=== PATIENT | female | born 1945 | race Caucasian/White ===

== ENCOUNTER 2017-02-26 06:12 | Inpatient (IN) | payer MEDICARE, MEDICAID ==
[~2017-02-26] VITALS: Ht 152.4 cm; Wt 59.1 kg
[2017-02-26] MEDS ORDERED: SODIUM CHLORIDE 0.9% 1,000ML IVBOLUS ONE (07:30)
[2017-02-26] MEDS ORDERED: SODIUM CHLORIDE FLUSH 10ML SYR IVF ONE (07:30)
[2017-02-26 08:16] LABS: ASPARTATE AMINO TRANSFERASE 25 U/L (15-37); BLOOD UREA NITROGEN 11 mg/dL (7-18)
[2017-02-26] MEDS ORDERED: NS + 40MEQ KCL 1,000 ML IV SCH (08:37)
[2017-02-26] MEDS ORDERED: POTASSIUM CHLORIDE 20 MEQ TAB.ER.PRT ONE (08:45)
[2017-02-26 09:00] LABS: PATH.CAST-FLAG NOT PRESENT; SPERM-FLAG NOT PRESENT; SRC-FLAG NOT PRESENT; XTAL-FLAG NOT PRESENT; YLC-FLAG NOT PRESENT
[2017-02-26] MEDS ORDERED: POTASSIUM CHLORIDE 20 MEQ TAB.ER.PRT PO ONE (09:00)
[2017-02-26] MEDS ORDERED: LOSA1TAB16 PO (09:27)
[2017-02-26] MEDS ORDERED: MONT10TA9 PO (09:28)
[2017-02-26] MEDS ORDERED: SITA1TAB PO (09:30)
[2017-02-26 12:15] VITALS: BP 139/61
[2017-02-26 13:45] LABS: BLOOD UREA NITROGEN 9 mg/dL (7-18)
[2017-02-26] MEDS ORDERED: MAGNESIUM SULFATE PMX 4GM/100M 100 ML IV ONE (14:30)
[2017-02-26] MEDS ORDERED: ACETAMINOPHEN 325 MG TABLET PO PRN (15:00)
[2017-02-26] MEDS ORDERED: DOCUSATE 100 MG CAPSULE PO PRN (15:00)
[2017-02-26] MEDS ORDERED: GUAIFENESIN/DM 200-20MG, 10ML UDC PO PRN (15:00)
[2017-02-26] MEDS ORDERED: hydrALAzine 20 MG/ML, 1ML IVPush PRN (15:00)
[2017-02-26] MEDS ORDERED: HYDROcodone/APAP 5/325 TABLET PO PRN (15:00)
[2017-02-26] MEDS ORDERED: morphine SULFATE 10 MG/ML, 1ML IVPush PRN (15:00)
[2017-02-26] MEDS ORDERED: ONDANSETRON 2MG/ML, 2ML IVPush PRN (15:00)
[2017-02-26] MEDS: POTASSIUM CHLORIDE 20 MEQ TAB.ER.PRT PO SCH ×2 (15:08→17:00)
[2017-02-26] MEDS: SODIUM CHLORIDE 0.9% 1,000 ML IV SCH (15:08)
[2017-02-26] MEDS: INSULIN ASPART 100 UNITS/ML, PEN SQ-INSULIN SCH ×2 (16:00→20:52)
[2017-02-26] MEDS ORDERED: ENOXAPARIN 40 MG/0.4 ML SQ SCH (16:00)
[2017-02-26 17:01] LABS: BLOOD UREA NITROGEN 8 mg/dL (7-18); TOTAL IRON BINDING CAPACITY 232 mcg/dL (250-450)
[2017-02-26 20:00] VITALS: BP 90/47
[2017-02-26] MEDS: SIMVASTATIN 20 MG TABLET PO SCH (20:52)
[2017-02-27] MEDS: SODIUM CHLORIDE 0.9% 1,000 ML IV SCH ×3 (01:03→16:53)
[2017-02-27 02:00] VITALS: BP 115/56
[2017-02-27 05:17] LABS: BLOOD UREA NITROGEN 8 mg/dL (7-18)
[2017-02-27] MEDS: ASPIRIN 81 MG TABLET EC PO SCH (05:37)
[2017-02-27] MEDS: INSULIN ASPART 100 UNITS/ML, PEN SQ-INSULIN SCH ×4 (07:00→20:20)
[2017-02-27 07:15] VITALS: BP 119/61
[2017-02-27] MEDS ORDERED: POTASSIUM PHOSPHATE 44 MEQ in SODIUM CHLORIDE 0.9% 500 ML IV ONE (08:30)
[2017-02-27] MEDS: MONTELUKAST 10 MG TABLET PO SCH (10:06)
[2017-02-27 12:46] VITALS: BP 128/66
[2017-02-27 14:19] LABS: OCCBLD OBC PASS
[2017-02-27 20:00] VITALS: BP 117/63
[2017-02-27] MEDS: SIMVASTATIN 20 MG TABLET PO SCH (20:20)
[2017-02-27 20:30] VITALS: BP 132/69
[2017-02-28] MEDS: SODIUM CHLORIDE 0.9% 1,000 ML IV SCH ×4 (01:54→23:14)
[2017-02-28 02:00] VITALS: BP 123/63
[2017-02-28 05:21] LABS: BLOOD UREA NITROGEN 11 mg/dL (7-18)
[2017-02-28] MEDS: ASPIRIN 81 MG TABLET EC PO SCH (05:29)
[2017-02-28 06:45] VITALS: BP 148/68
[2017-02-28] MEDS: INSULIN ASPART 100 UNITS/ML, PEN SQ-INSULIN SCH ×4 (07:00→20:16)
[2017-02-28] MEDS ORDERED: MAGNESIUM SULFATE PMX 4GM/100M 100 ML IV ONE (09:00)
[2017-02-28] MEDS: MONTELUKAST 10 MG TABLET PO SCH (09:49)
[2017-02-28] MEDS: POTASSIUM CHLORIDE 20 MEQ TAB.ER.PRT PO SCH ×2 (11:03→20:16)
[2017-02-28 13:24] VITALS: BP 123/64
[2017-02-28] MEDS: SIMVASTATIN 20 MG TABLET PO SCH (20:16)
[2017-02-28 20:18] VITALS: BP 142/67
[2017-03-01 02:01] VITALS: BP 149/70
[2017-03-01] MEDS: ASPIRIN 81 MG TABLET EC PO SCH (06:15)
[2017-03-01 06:19] LABS: BLOOD UREA NITROGEN 9 mg/dL (7-18)
[2017-03-01] MEDS: INSULIN ASPART 100 UNITS/ML, PEN SQ-INSULIN SCH ×4 (07:00→21:52)
[2017-03-01 07:15] VITALS: BP 158/73
[2017-03-01] MEDS: SODIUM CHLORIDE 0.9% 1,000 ML IV SCH (08:00)
[2017-03-01] MEDS ORDERED: MAGNESIUM SULFATE PMX 4GM/100M 100 ML IV ONE (09:00)
[2017-03-01 09:20] VITALS: BP 167/79
[2017-03-01] MEDS ORDERED: LORazepam 1MG TABLET PO ONE (09:30)
[2017-03-01] MEDS ORDERED: LORazepam 1MG TABLET ONE (09:30)
[2017-03-01] MEDS: POTASSIUM CHLORIDE 20 MEQ TAB.ER.PRT PO SCH ×2 (09:40→21:50)
[2017-03-01] MEDS: MONTELUKAST 10 MG TABLET PO SCH (09:40)
[2017-03-01 12:35] VITALS: BP 143/85
[2017-03-01 14:40] VITALS: BP 134/67
[2017-03-01 16:38] LABS: BLOOD UREA NITROGEN 7 mg/dL (7-18)
[2017-03-01] MEDS: METOPROLOL TARTRATE 25 MG TABLET PO SCH (17:15)
[2017-03-01 19:05] VITALS: BP 115/63
[2017-03-01] MEDS: SIMVASTATIN 20 MG TABLET PO SCH (21:50)
[2017-03-02 00:32] VITALS: BP 120/65
[2017-03-02 05:29] LABS: BLOOD UREA NITROGEN 7 mg/dL (7-18)
[2017-03-02] MEDS: ASPIRIN 81 MG TABLET EC PO SCH (05:58)
[2017-03-02] MEDS: METOPROLOL TARTRATE 25 MG TABLET PO SCH ×2 (06:02→17:31)
[2017-03-02] MEDS: INSULIN ASPART 100 UNITS/ML, PEN SQ-INSULIN SCH ×3 (07:00→16:00)
[2017-03-02 08:12] VITALS: BP 148/76
[2017-03-02] MEDS: MONTELUKAST 10 MG TABLET PO SCH (08:14)
[2017-03-02] MEDS: POTASSIUM CHLORIDE 20 MEQ TAB.ER.PRT PO SCH (08:14)
[2017-03-02] MEDS ORDERED: MAGNESIUM SULFATE PMX 2GM/50ML 50 ML IV ONE (08:30)
[2017-03-02] MEDS ORDERED: ASPI-621 PO (10:20)
[2017-03-02] MEDS ORDERED: LISI5TAB7 PO (10:20)
[2017-03-02] MEDS ORDERED: POTA20TA89 PO (10:20)
[2017-03-02] MEDS ORDERED: METO25TA35 PO (10:20)
[2017-03-02] MEDS ORDERED: MAGN400T26 PO (10:20)
[2017-03-02] MEDS ORDERED: SIMV20TA3 PO (10:20)
[2017-03-02] MEDS ORDERED: POTASSIUM PHOS 4.4 MEQ/ML IV ONE (10:30)
[2017-03-02] MEDS ORDERED: POTASSIUM PHOSPHATE 22 MEQ in SODIUM CHLORIDE 0.9% 500 ML IV ONE (10:30)
[2017-03-02 14:51] VITALS: BP 102/60
== END 2017-03-02 19:58 | disposition home or self-care (01) | DRG 309 ==
LOC: ED 08:38 → EDIP 08:39 → ED 09:07 → 4EST 11:22
PROVIDERS: ADMIT Internal Medicine; ATTEND Family Medicine
DX: I48.91 Unspecified atrial fibrillation (principal); E87.1 Hypo-osmolality and hyponatremia; E11.9 Type 2 diabetes mellitus without complications; E83.42 Hypomagnesemia; E87.6 Hypokalemia; I10 Essential (primary) hypertension; D64.9 Anemia, unspecified; E83.39 Other disorders of phosphorus metabolism; I08.3 Combined rheumatic disorders of mitral, aortic and tricuspid valves; I27.2 Other secondary pulmonary hypertension; T50.2X5A Adverse effect of carbonic-anhydrase inhibitors, benzothiadiazides and other diuretics, initial encounter; Z86.73 Personal history of transient ischemic attack (TIA), and cerebral infarction without residual deficits; Z79.899 Other long term (current) drug therapy
CPT/HCPCS: 36415; 70450; 71010; 80048; 80053; 80061; 81001; 82272; 82533; 82570; 82728; 82962; 83540; 83550; 83605; 83735; 83935; 84100; 84133; 84156; 84300; 84443; 85025; 87040; 87086; 93005; 93306; 93970; 96360; 96361; J1650; J1815; J2405; J3475; J3480; J7030; J7040

== ENCOUNTER 2017-08-28 19:32 | Inpatient (IN) | payer MEDICARE ==
[~2017-08-28] VITALS: Ht 152.4 cm; Wt 62.8 kg
[~2017-08-28 19:32] MED LIST: ASPI-621 PO; LISI5TAB7 PO; LOSA1TAB19 PO; MAGN400T26 PO; METO25TA35 PO; MONT10TA9 PO; POTA20TA89 PO; SIMV20TA3 PO; SITA1TAB PO
[2017-08-28] MEDS ORDERED: ACETAMINOPHEN 325 MG TABLET ONE (19:59)
[2017-08-28] MEDS ORDERED: SODIUM CHLORIDE 0.9% 1,000ML IVBOLUS ONE (20:00)
[2017-08-28] MEDS ORDERED: SODIUM CHLORIDE FLUSH 10ML SYR IVF ONE (20:00)
[2017-08-28] MEDS ORDERED: ACETAMINOPHEN 325 MG TABLET PO ONE (20:00)
[2017-08-28 20:34] LABS: BLOOD UREA NITROGEN 9 mg/dL (7-18)
[2017-08-28 21:10] LABS: WHITE BLOOD COUNT 5.6 x10^3/uL (3.4-10)
[2017-08-28 21:11] LABS: HEMATOCRIT 35.7 % (34.6-47.8); HEMOGLOBIN 12.3 g/dL (11.7-16.4)
[2017-08-28 22:00] LABS: PATH.CAST-FLAG NOT PRESENT; SPERM-FLAG NOT PRESENT; SRC-FLAG NOT PRESENT; XTAL-FLAG NOT PRESENT; YLC-FLAG NOT PRESENT
[2017-08-28] MEDS ORDERED: IBUPROFEN 200 MG TABLET PO ONE (22:00)
[2017-08-28 22:01] LABS: RAPID INFLUENZA A POSITIVE (Negative); RAPID INFLUENZA B Negative (Negative)
[2017-08-28] MEDS ORDERED: IBUPROFEN 200 MG TABLET ONE (22:07)
[2017-08-28] MEDS ORDERED: OSELTAMIVIR 75 MG CAPSULE PO ONE (22:30)
[2017-08-29 01:45] VITALS: BP 116/75
[2017-08-29] MEDS ORDERED: ACETAMINOPHEN 325 MG TABLET PO PRN (02:00)
[2017-08-29] MEDS ORDERED: ONDANSETRON 2MG/ML, 2ML IVPush PRN (02:00)
[2017-08-29] MEDS ORDERED: GUAIFENESIN/DM 200-20MG, 10ML UDC PO PRN (02:00)
[2017-08-29 02:36] VITALS: BP 116/75
[2017-08-29] MEDS: ENOXAPARIN 40 MG/0.4 ML SQ SCH (02:40)
[2017-08-29] MEDS: SODIUM CHLORIDE 0.9% 1,000 ML IV SCH ×2 (02:40→15:00)
[2017-08-29] MEDS: INSULIN ASPART 100 UNITS/ML, PEN SQ-INSULIN SCH ×4 (07:00→20:41)
[2017-08-29 08:04] VITALS: BP 108/57
[2017-08-29] MEDS: LISINOPRIL 5 MG TABLET PO SCH (08:09)
[2017-08-29] MEDS: SITAGLIPTIN 50MG TABLET PO SCH (08:09)
[2017-08-29] MEDS: OSELTAMIVIR 75 MG CAPSULE PO SCH ×2 (08:10→20:41)
[2017-08-29] MEDS: metFORMIN 500 MG TABLET PO SCH (08:10)
[2017-08-29 12:50] VITALS: BP 138/66
[2017-08-29 20:35] VITALS: BP 122/62
[2017-08-29] MEDS ORDERED: SIMVASTATIN 20 MG TABLET PO SCH (21:00)
[2017-08-30 01:12] VITALS: BP 118/66
[2017-08-30] MEDS: SODIUM CHLORIDE 0.9% 1,000 ML IV SCH (04:21)
[2017-08-30] MEDS: ENOXAPARIN 40 MG/0.4 ML SQ SCH (04:21)
[2017-08-30] MEDS: INSULIN ASPART 100 UNITS/ML, PEN SQ-INSULIN SCH ×3 (07:00→16:00)
[2017-08-30 07:50] VITALS: BP 148/63
[2017-08-30] MEDS: LISINOPRIL 5 MG TABLET PO SCH (09:37)
[2017-08-30] MEDS: metFORMIN 500 MG TABLET PO SCH (09:37)
[2017-08-30] MEDS: SITAGLIPTIN 50MG TABLET PO SCH (09:37)
[2017-08-30] MEDS: OSELTAMIVIR 75 MG CAPSULE PO SCH (09:37)
[2017-08-30] MEDS ORDERED: OSEL75CA PO (10:54)
== END 2017-08-30 19:01 | disposition home or self-care (01) | DRG 193 ==
LOC: ED 23:59 → SUATTDRO 08-29 01:07 → EDIP 08-29 01:40 → 4WST 08-29 01:49
PROVIDERS: ADMIT Hospitalist; ATTEND Hospitalist
DX: J10.1 Influenza due to other identified influenza virus with other respiratory manifestations (principal); J96.01 Acute respiratory failure with hypoxia; E78.5 Hyperlipidemia, unspecified; E11.9 Type 2 diabetes mellitus without complications; I10 Essential (primary) hypertension; J40 Bronchitis, not specified as acute or chronic
CPT/HCPCS: 36415; 71010; 80048; 81001; 82040; 82962; 83605; 84145; 85025; 87040; 87086; 87400; 96360; 96361; J1650; J7030

== ENCOUNTER 2018-08-30 21:19 | Emergency (ER) | payer MEDICARE ==
[~2018-08-30] VITALS: Ht 142.2 cm; Wt 67.1 kg
[~2018-08-30 21:19] MED LIST changes: -ASPI-621 PO; +ASPI81TA45 PO; +OSEL75CA PO
[2018-08-30 21:22] VITALS: BP 157/79
[2018-08-30] MEDS ORDERED: IBUPROFEN 600 MG TABLET ONE (21:55)
[2018-08-30] MEDS ORDERED: IBUPROFEN 200 MG TABLET PO ONE (22:00)
[2018-08-30] MEDS ORDERED: METO25TA35 PO (22:02)
[2018-08-30] MEDS ORDERED: METF500T17 PO (22:02)
== END 2018-08-30 22:33 | disposition home or self-care (01) ==
LOC: ED 22:13
DX: B34.9 Viral infection, unspecified (principal); E78.5 Hyperlipidemia, unspecified; E11.9 Type 2 diabetes mellitus without complications; I10 Essential (primary) hypertension; Z79.899 Other long term (current) drug therapy
CPT/HCPCS: 71046; 99283